=== PATIENT | female | born 1965 | race Caucasian/White ===

== ENCOUNTER 2022-07-22 12:18 | Outpatient (REF) | payer OTHER, SELFPAY ==
[2022-07-22 12:40] LABS: Basophils Absolute Auto 0.06 K/uL (0.00-0.30); Basophils Percent Auto 0.8 % (0.0-3.0); Eosinophils Absolute Auto 0.21 K/uL (0.00-0.50); Hematocrit 38.4 % (33.0-51.0); Hemoglobin* 13.8 gm/dL (12.0-16.0); Immature Granulocytes Abs Auto 0.03 K/uL (0.00-0.30); Lymphocytes Absolute Auto 1.42 K/uL (0.90-2.90); Mean Corpuscular HGB Conc 36 gm/dL (32-36); Mean Corpuscular Hemoglobin 34 pg (26-34); Mean Corpuscular Volume 95 fL (80-100); Monocytes Percent Auto 10.8 % (0.0-11.0); Neutrophils Absolute Auto 4.62 K/uL (1.7-7.0); Platelet Count* 219 K/uL (140-440); RDW Coefficient of Variation % 14.8 % (11.5-15.5); Red Blood Count 4.05 m/uL (4.00-5.20); White Blood Count* 7.11 K/uL (4.50-11.00)
[2022-07-22 12:42] LABS: Albumin* 4.2 g/dL (3.3-5.0)
[2022-07-22 12:44] LABS: Creatinine* 0.7 mg/dL (0.5-1.5); Estimated Glomerular Filt Rate 102 ml/min; Slide Review Reflex No
[2022-07-22 12:45] LABS: Alanine Aminotransferase* 22 U/L (4-35); Aspartate Amino Transferase* 26 U/L (12-35)
== END 2022-07-22 12:19 | disposition home or self-care (01) ==
LOC: NPINS 12:18
PROVIDERS: PCP Internal Medicine; Visit Provider Internal Medicine Rheumatology
DX: Z79.899 Other long term (current) drug therapy (principal); M06.4 Inflammatory polyarthropathy; M75.31 Calcific tendinitis of right shoulder; M75.81 Other shoulder lesions, right shoulder
CPT/HCPCS: 82040; 82565; 84450; 84460; 85025

== ENCOUNTER 2022-10-19 08:30 | Outpatient (RCR) | payer OTHER, SELFPAY ==
--- NOTE | 2022-07-27 15:07 | PT.OPEX ---
PT [facility] Outpatient Eval PT [facility] Outpatient Eval Start: 07/26/22 16:27 Freq: Status: Active Protocol: Document 07/26/22 16:27 SATYA (Rec: 07/26/22 16:31 SATYA [id number]) E-signed By Cori Cormier DPT Physical Therapy Outpatient Evaluation Insurance Information Insurance Name [employer] Medical Diagnosis Calcific tendinitis of R shoulder R RC tendinitis L RC tendinitis Treating Diagnosis bilateral shoulder pain, bilateral shoulder weakness, impaired posture with rounded shoulders/fwd head, limited tolerance for lifting/reaching , interrupted sleep Subjective Subjective Patient reports chronic L shoulder pain for the last 6+ months. Feels that the L shoulder pain has been getting sore, popping/catching with ROM. She had an appt scheduled with MD and then prior to the appt had onset of R shoulder pain. States she was playing pickleball one evening and had flare up of R shoulder pain. States by the next morning she was having difficulty moving R shoulder/ UE. She saw MD last week and he gave her an injection to the R shoulder. Patient reports decreased pain in R shoulder since the injection. States she is still protecting it, avoiding using it. Patient is R handed. She has been using ibuprofen and ice for pain management. Reports increased pain with lifting, reaching, use of bilateral shoulders/UEs. Pain range 1-2/10 since the injection last week. Sleep is interrupted some. Date of Last Physician Visit 07/22/22 Objective Range of Motion bilateral shoulder AROM WFL with pain/tightness reported at end ranges bilaterally Strength bilateral shoulder weakness, 4 -/5 for flex/abd/scap, 4/5 for IR/ER Assessment Assessment/Impression Patient is a 56 year old female with bilateral shoulder pain, bilateral shoulder weakness, impaired posture with rounded shoulders/fwd head, limited tolerance for lifting/reaching, interrupted sleep. Pain rated 1-2/10. Bilateral shoulder AROM is WFL with pain/tightness reported at end ranges. Patient with bilateral shoulder weakness, pain with MMT. Bilateral shoulder MMT: 4-/5 for flex/ abd/scap, 4/5 for IR/ER. She is tight, tender, reactive with palpation bilateral anterior shoulder, biceps tendon, UT/supraspinatus. Patient denies any radicular pain/sx. Speeds test positive with pain/weakness R/L shoulder. CO reach positive with pain R/L shoulder. Supraspinatus test positive with pain/weakness R/L shoulder. Patient with fwd head, rounded shoulders. She is R handed. Reports increased pain with lifting, reaching activities bilateral shoulders. Patient would benefit from skilled PT for pain/sx management, return to pain free bilateral shoulder ROM, improved bilateral shoulder strength/stability, posture/body mechanics training, and establishment of HEP. Plan of Care Rehabilitation Potential Good Physical Therapy Goals 1. Decrease R/L shoulder pain to less than/equal to 3/10 with daily/workout activities and with the progression of PT activities over the next 6-8 weeks. 2. Decrease R/L shoulder pain so that patient is able to sleep through the night on a regular basis within 4-6 weeks. 3. Improve R/L shoulder AROM over the next 6-8 weeks for return to pain free shoulder AROM and daily/workout activities without flare up of pain. 4. Patient will be educated on posture and body mechanics over the next 4-6 weeks for decreased stress to UBN/shoulder region, improved shoulder mechanics, and decreased shoulder pain. 5. Improve R/L shoulder strength/stability over the next 10-12 weeks for return to PLF with daily/workout activities without flare up of pain. 6. Patient will be I with HEP within 12 weeks for progression toward above goals, ongoing self management of pain/sx, ongoing self improvements in posture/shoulder strength/ mechanics, and for return to PLF with daily/workout activities without flare up of pain. Coordination/Communication With Referral Source Treatment Plan/Direct Interventions Manual Therapy,Therapeutic Exercises,Ultrasound Frequency/Duration 1-2x/week Patient Will Be Discharged From Therapy Completion of LTG(s),Skills Plateau,Independent w/HEP, Independently Progressing Evaluation Billing Untimed Code Treatment Minutes 23 Complexity Moderate Certification Information Physician Comment/Change Comment or Changes Physician NPI Number #
== END 2023-01-21 11:08 | disposition home or self-care (01) ==
PROVIDERS: PCP Internal Medicine; Visit Provider Orthopaedic Surgery Sports Medicine
DX: M75.31 Calcific tendinitis of right shoulder (principal); Z51.89 Encounter for other specified aftercare
CPT/HCPCS: 97110; 97140; 97162; 97535

== ENCOUNTER 2022-12-23 16:23 | Outpatient (CLI) | payer OTHER, SELFPAY ==
[2022-12-23 17:57] LABS: Cholesterol* 219 mg/dL (90-199); Triglycerides* 182 mg/dL (40-149)
[2022-12-23 17:58] LABS: HDL Cholesterol* 76 mg/dL (>=50); LDL Cholesterol Calculated 107 mg/dL (<100)
== END 2022-12-23 16:24 | disposition home or self-care (01) ==
PROVIDERS: PCP Internal Medicine; Visit Provider Internal Medicine
DX: R07.89 Other chest pain (principal); R10.32 Left lower quadrant pain
CPT/HCPCS: 80061

== ENCOUNTER 2023-01-13 08:09 | Outpatient (CLI) | payer OTHER, SELFPAY ==
--- NOTE | 2023-01-13 08:15 | CRLHL7_ITS ---
For Patients: As a result of the Century Cures Act, medical imaging exams and procedure reports are released immediately into your electronic medical record. You may view this report before your referring provider. If you have questions, please contact your health care provider. CLINICAL HISTORY: Pelvic Pain LLQ TECHNIQUE: 2D miller scale ultrasound. In addition color Doppler and spectral Doppler analysis was performed of the pelvis using a transabdominal and transvaginal approach. FINDINGS: The uterus and right ovary are surgically absent. The left ovary measures 1.9 x 1.6 x 1.5 cm. The left ovary demonstrates normal arterial and venous blood flow on color Doppler and spectral Doppler analysis. There are no suspicious fluid collections within the cul-de-sac. IMPRESSION: No ovarian mass or excess pelvic free fluid. No torsion. Dictated by Epifanio Lagos MD @ 01/13/2023 9:31:42 AM (Electronically Signed)
== END 2023-01-13 08:10 | disposition home or self-care (01) ==
LOC: US 08:10
PROVIDERS: PCP Internal Medicine; Visit Provider Internal Medicine
DX: R10.32 Left lower quadrant pain (principal); D18.09 Hemangioma of other sites
CPT/HCPCS: 76830; 76856; 93976

== ENCOUNTER 2023-01-14 08:14 | Outpatient (CLI) | payer OTHER, SELFPAY ==
--- NOTE | 2023-01-14 09:00 | CRLHL7_ITS ---
For Patients: As a result of the Century Cures Act, medical imaging exams and procedure reports are released immediately into your electronic medical record. You may view this report before your referring provider. If you have questions, please contact your health care provider. Indication: LLQ PAIN Technique: Postcontrast CT abdomen and pelvis. 91 cc Isovue 370 intravenous contrast. Please note that all CT scans at this facility use dose modulation, iterative reconstruction, and/or weight-based dosing when appropriate to reduce radiation dose to as low as reasonably achievable. Comparison: CT 11/02/2017, pelvic ultrasound 01/13/2023 Findings: Lung bases are clear. Visualized breast implants are intact. Giant cavernous hemangioma arising from the left hepatic lobe measuring 6.2 cm is similar. Sub centimeters simple cysts elsewhere within the liver. The spleen is normal. Small hiatal hernia measuring 2.4 cm. Adrenal glands normal. Normal kidneys. Pancreas normal. No bowel obstruction, free air, free fluid or adenopathy. Normal bladder and left ovary. Uterus and right ovary absent. No diverticulitis. No left ureteral stone. No abdominal wall hernia. Bilateral pars defects L5 with slight anterolisthesis of L5 on S1. Grade 1 degenerative spondylolisthesis of L4 on L5 with degenerative disc disease. These findings are chronic. Impression: Stable giant cavernous intrahepatic hemangioma. Normal appearance of the left ovary. No adnexal mass. No cause for left lower quadrant pain on today`s exam. Please note that all CT scans at this facility use dose modulation, iterative reconstruction, and/or weight-based dosing when appropriate to reduce radiation dose to as low as reasonably achievable. Dictated by Epifanio Lagos MD @ 01/14/2023 12:30:24 PM (Electronically Signed)
== END 2023-01-14 08:15 | disposition home or self-care (01) ==
LOC: CT 08:14
PROVIDERS: PCP Internal Medicine; Visit Provider Internal Medicine
DX: R10.32 Left lower quadrant pain (principal); D18.09 Hemangioma of other sites
CPT/HCPCS: 74177; Q9967

== ENCOUNTER 2023-02-11 13:07 | Outpatient (CLI) | payer OTHER, SELFPAY ==
--- NOTE | 2023-02-11 13:20 | CRLHL7_ITS ---
For Patients: As a result of the Century Cures Act, medical imaging exams and procedure reports are released immediately into your electronic medical record. You may view this report before your referring provider. If you have questions, please contact your health care provider. BILATERAL SCREENING MAMMOGRAM WITH COMPUTER-AIDED DETECTION AND TOMOSYNTHESIS TECHNIQUE: CC, MLO and Implant displaced views were obtained. These mammographic images have been obtained using full-field digital technique. These mammographic images were interpreted with the benefit of computer-aided detection. Breast Tomosynthesis was used in this interpretation. COMPARISON FILM: 02/02/22, 01/01/21, 09/07/19. FINDINGS: There are areas of scattered fibroglandular density. IMPRESSION: There is no radiographic evidence for malignancy. ASSESSMENT: BI-RADS Category 2: Benign RECOMMENDATION: Routine screening mammogram in 1 year. A lay language report of this examination will be provided to the patient. Epifanio Lagos M.D. Diagnostic Radiologist [email or web address] Transcribed: 1:31 p.maximus jane/Dictated by: Epifanio Lagos MD @ 02/14/2023 12:03:00 PM (Electronically Signed)
== END 2023-02-11 13:08 | disposition home or self-care (01) ==
LOC: MAMMO 13:08
PROVIDERS: PCP Internal Medicine; Visit Provider Obstetrics & Gynecology
DX: Z12.31 Encounter for screening mammogram for malignant neoplasm of breast (principal)
CPT/HCPCS: 77063; 77067

== ENCOUNTER 2023-02-17 08:48 | Outpatient (CLI) | payer OTHER, SELFPAY | END 2023-02-17 08:49 | disposition home or self-care (01) | PROVIDERS: PCP Internal Medicine; Visit Provider Surgery | DX: R13.10 Dysphagia, unspecified (principal); K22.89 Other specified disease of esophagus | CPT/HCPCS: 43239; 88305; J2250; J3010 ==

== ENCOUNTER 2023-03-09 08:01 | Emergency (ER) | payer OTHER, SELFPAY ==
[2023-03-09] VITALS (19 sets, daily range): BP systolic 116–139; BP diastolic 73–100; PULSE 62–78; RESP 16; TEMP 36.7; O2SAT 93–99; BMI 31.9
--- NOTE | 2023-03-09 08:26 | CRLHL7_ITS ---
For Patients: As a result of the Century Cures Act, medical imaging exams and procedure reports are released immediately into your electronic medical record. You may view this report before your referring provider. If you have questions, please contact your health care provider. Indication: Shortness of breath Technique: Volumetric multidetector CT images of the chest were obtained after the administration of IV contrast. 95 cc Isovue 370 low osmolar intravenous contrast Comparison: CT chest August 10, 2018 Findings: The thoracic inlet and thyroid gland are unremarkable. The thoracic aorta demonstrates mild ectasia measuring 3.5 centimeters in greatest dimension. There is no central filling defect to suggest pulmonary embolism. There is no mediastinal, hilar or axillary adenopathy. There is mild to moderate central bronchial thickening. There is minimal bibasilar atelectasis and/or parenchymal scar without dense consolidation, effusion or pneumothorax. There is no evidence of pulmonary mass or suspicious pulmonary nodule. There is demonstration of a hypodense nodular mass in the left liver lobe without adequate contrast for characterization seen on series 5, image 149. This was present on remote comparison exam; however, was decreased in conspicuity. The thoracic vertebral body heights are stable with minimal endplate Schmorl`s defects. There is demonstration of a small calcified disc extrusion at the T6-T7 level. Impression: No acute cardiopulmonary abnormality. No evidence of pulmonary embolus. Redemonstration of a hypodense nodular mass in the left liver lobe, not adequately contrast opacified for characterization which may represent focal nodular hyperplasia. Follow-up with right upper quadrant ultrasound for improved characterization versus cross-sectional exam such as MR or CT of the liver on an outpatient basis. Please note that all CT scans at this facility use dose modulation, iterative reconstruction, and/or weight-based dosing when appropriate to reduce radiation dose to as low as reasonably achievable. Dictated by Marc Redd MD @ 03/09/2023 9:47:28 AM (Electronically Signed)
--- NOTE | 2023-03-09 08:26 | CRLHL7_ITS ---
For Patients: As a result of the Century Cures Act, medical imaging exams and procedure reports are released immediately into your electronic medical record. You may view this report before your referring provider. If you have questions, please contact your health care provider. INDICATION: SOB TECHNIQUE: Ultrasound venous duplex bilateral lower extremity. Compression venous exam was performed using miller-scale, color Doppler, and spectral Doppler analysis. COMPARISON: None. FINDINGS: Deep veins: Sonographic imaging demonstrates the bilateral common femoral, deep femoral, superficial femoral, popliteal, posterior tibial veins to be fully compressible with normal color Doppler blood flow. Superficial veins: Greater saphenous vein is fully compressible. Left popliteal fossa hypoechoic structure measuring 7.5 x 2.8 x 7.6 cm, most compatible with Taylor cyst. No right popliteal cyst. IMPRESSION: No sign of deep venous thrombosis. Left Taylor`s cyst, measuring 7.5 x 2.8 x 7.6 cm. Dictated by Kishan Wheatley MD @ 03/09/2023 10:25:37 AM (Electronically Signed)
--- NOTE | 2023-03-09 08:28 | ED.GENADULT ---
HPI - General Adult General Time Seen by Provider: 08:28 Date Seen: 03/09/23 Chief complaint: Shortness of Breath/Dyspnea Stated complaint: Short of breath, cough--DVT concern Time Seen by Provider: 03/09/23 08:03 Source: patient Mode of arrival: ambulatory Limitations: no limitations History of Present Illness HPI narrative: PATIENT IS A PLEASANT 57 YEAR WHITE FEMALE WITH RHEUMATOID ARTHRITIS, BUNCH'S ESOPHAGUS, AND GERD WHO PRESENTS WITH about a week-long history of upper respiratory infections sinus congestion cough. More notably the patient noticed some inner thigh calf and thigh redness on the medial aspects bilaterally yesterday and today has been a bit tender to touch. The patient has had no bleeding or clotting problems. She also has had some little bit more shortness of breath with activity. She has no history of cardiac disease or lung disease, does have Bunch's esophagus, use if iliac esophagitis she is working that up, and rheumatoid arthritis. The patient is on immune suppression Michelle new med for her rheumatoid arthritis. Patient also takes estradiol. No marked leg swelling, no rigors, chills. The patient has had a negative COVID test. Presents to the ED concerned about a PE. Related Data Home Medications Medication Instructions Recorded Confirmed adalimumab 40 mg/0.4 mL 40 mg subcut Q2W 07/15/22 03/09/23 subcutaneous syringe kit (Humira(CF)) albuterol sulfate 90 mcg/actuation 2 puff inhalation Q4-6H PRN 07/15/22 03/09/23 aerosol inhaler (ProAir HFA) hydroxychloroquine 200 mg tablet 200 mg PO BID 07/15/22 03/09/23 (Plaquenil) methotrexate sodium 2.5 mg tablet 15 mg PO QWEEK 07/15/22 03/09/23 tretinoin 0.1 % topical cream 1 applic topical .QHS 07/15/22 03/09/23 (Retin-A) folic acid 1 tab PO 07/22/22 12/23/22 Previous Rx's Medication Instructions Recorded trazodone 50 mg tablet 50 - 100 mg PO .QHS #180 tabs 08/16/22 finasteride 5 mg tablet 2.5 mg PO QDAY #45 tabs 08/31/22 pantoprazole 40 mg tablet,delayed 40 mg PO QDAY #90 tabs 09/15/22 release (Protonix) estradiol 0.1 mg/24 hr semiweekly 1 patch transdermal 2XW #24 ea 11/25/22 transdermal patch estradiol 10 mcg vaginal tablet 10 mcg vaginal 2XW #24 tabs 11/25/22 (Yuvafem) doxycycline hyclate 100 mg capsule 100 mg PO BID #14 caps 03/09/23 Allergies Allergy/AdvReac Type Severity Reaction Status Date / Time Sulfa (Sulfonamide Allergy Unknown Verified 03/09/23 08:09 Antibiotics) Review of Systems Status of ROS: Reports: 6 or more systems reviewed and unremarkable except as noted in History and below PFS PFS Surgical History History of abdominoplasty ?Z98.890 - Other specified postprocedural states (ICD-10) History of basal cell carcinoma excision ?Z98.890 - Other specified postprocedural states (ICD-10) ?Z85.828 - Personal history of other malignant neoplasm of skin (ICD-10) History of section ?Z98.891 - History of uterine scar from previous surgery (ICD-10) History of hysterectomy ?Z90.710 - Acquired absence of both cervix and uterus (ICD-10) History of right oophorectomy ?Z90.721 - Acquired absence of ovaries, unilateral (ICD-10) History of tonsillectomy ?Z90.89 - Acquired absence of other organs (ICD-10) Hx of appendectomy ?Z90.49 - Acquired absence of other specified parts of digestive tract (ICD-10) Hx of breast augmentation ?Z98.82 - Breast implant status (ICD-10) Family History Unknown Cancer Diabetes Heart problem Mother No problems noted. Social History Smoking Status: Never smoker Do you use any of these nicotine containing products: None Second hand tobacco smoke exposure: No How often do you have a drink containing alcohol: never AUDIT-C Alcohol total score: 0 Non-prescribed substance use: denies use Little interest or pleasure in doing things: not at all Feeling down, depressed, or hopeless: not at all service: No Exam Narrative: Exam Narrative: Objective: The patient is alert or x3 Vital signs unremarkable HEENT is unremarkable no facial asymmetry no scleral icterus Mouth clear Neck is supple Chest is clear no rales or wheezing Heart rate and rhythm regular without S3, S4, no significant murmur noted. Abdomen benign soft Extremities show no edema, neurologic nonfocal, there is some mild warmth on the inner aspect of her distal thighs bilaterally and medial calves. There is no palpable venous cords. Good peripheral perfusion noted Const: Vital Signs, click to edit/add: Vital Signs - 24 hr 03/09/23 08:11 03/09/23 09:03 03/09/23 09:20 Temperature 98.0 F Pulse Rate 70 Pulse Rate [Pulse Oximeter] 78 Respiratory Rate 16 Blood Pressure Blood Pressure [Ri ght Upper Arm] 124/74 Pulse Oximetry 97 99 98 Oxygen Delivery Me thod Room Air 03/09/23 09:21 03/09/23 09:22 03/09/23 09:42 Temperature Pulse Rate 67 65 Pulse Rate [Pulse Oximeter] Respiratory Rate 16 Blood Pressure 139/100 H 120/85 Blood Pressure [Ri ght Upper Arm] Pulse Oximetry 98 98 Oxygen Delivery Me thod 03/09/23 10:01 03/09/23 10:04 03/09/23 10:15 Temperature Pulse Rate 66 65 Pulse Rate [Pulse Oximeter] Respiratory Rate Blood Pressure 117/73 Blood Pressure [Ri ght Upper Arm] Pulse Oximetry 94 94 Oxygen Delivery Me thod 03/09/23 10:21 03/09/23 10:30 03/09/23 10:41 Temperature Pulse Rate 69 62 64 Pulse Rate [Pulse Oximeter] Respiratory Rate Blood Pressure 131/83 116/80 Blood Pressure [Ri ght Upper Arm] Pulse Oximetry 97 95 93 Oxygen Delivery Me thod 03/09/23 10:41 03/09/23 10:41 03/09/23 10:41 Temperature Pulse Rate 64 64 64 Pulse Rate [Pulse Oximeter] Respiratory Rate Blood Pressure 116/80 116/80 116/80 Blood Pressure [Ri ght Upper Arm] Pulse Oximetry 93 93 93 Oxygen Delivery Me thod 03/09/23 10:53 03/09/23 11:00 03/09/23 11:01 Temperature Pulse Rate 63 62 63 Pulse Rate [Pulse Oximeter] Respiratory Rate Blood Pressure 121/82 Blood Pressure [Ri ght Upper Arm] Pulse Oximetry 97 96 98 Oxygen Delivery Me thod 03/09/23 11:01 03/09/23 11:02 03/09/23 11:15 Temperature Pulse Rate 63 64 64 Pulse Rate [Pulse Oximeter] Respiratory Rate Blood Pressure 121/82 Blood Pressure [Ri ght Upper Arm] Pulse Oximetry 98 97 95 Oxygen Delivery Me thod 03/09/23 11:21 03/09/23 11:30 Temperature Pulse Rate 65 65 Pulse Rate [Pulse Oximeter] Respiratory Rate Blood Pressure 118/96 H Blood Pressure [Ri ght Upper Arm] Pulse Oximetry 98 98 Oxygen Delivery Me thod Course Vital Signs Vital signs: Initial Vital Signs Temperature 98.0 F 03/09/23 08:11 Temperature Source Temporal Artery Scan 03/09/23 08:11 Pulse Rate 78 03/09/23 08:11 Pulse Rhythm Regular 03/09/23 08:11 Pulse Strength 3+ Normal 03/09/23 08:11 Respiratory Rate 16 03/09/23 08:11 Blood Pressure 124/74 03/09/23 08:11 Blood Pressure Mean 90 03/09/23 08:11 Blood Pressure Position Sitting 03/09/23 08:11 Pulse Oximetry 97 03/09/23 08:11 Oxygen Delivery Method Room Air 03/09/23 08:11 Vital Signs Temperature 98.0 F 03/09/23 08:11 Pulse Rate 78 03/09/23 08:11 Respiratory Rate 16 03/09/23 08:11 Blood Pressure 124/74 03/09/23 08:11 Pulse Oximetry 97 03/09/23 08:11 Oxygen Delivery Method Room Air 03/09/23 08:11 Temperature 98.0 F 03/09/23 08:11 Pulse Rate 65 03/09/23 11:30 Respiratory Rate 16 03/09/23 09:21 Blood Pressure 118/96 H 03/09/23 11:21 Pulse Oximetry 98 03/09/23 11:30 Oxygen Delivery Method Room Air 03/09/23 08:11 Medical Decision Making MDM Narrative Medical decision making narrative: Patient is a 57-year-old white female with history of rheumatoid arthritis, Bunch's esophagus, on estrogen replacement. The patient reports some tenderness and mild warmth in the inner aspect of her calves and distal thighs times 24 hours. Also has some mild shortness of breath, but she has had an upper respiratory infection for the last 10 days as well. At this point the differential be broad including coronary disease, pulmonary embolus, thrombophlebitis. At this point I think could be appropriate to give her aspirin, IV fluid, check a CT scan of her chest with contrast to rule out PE rupture or other intrapulmonary process such as pneumonia, would also do a cardiac workup including EKG, cardiac monitoring, oximetry, troponin. Will check a CRP electrolytes and other labs, CBC. Depending on results of the CT scan and Doppler, may continue aspirin, start an antibiotic such as Ancef and then Keflex for home. I think for completeness getting blood cultures would be appropriate as well as COVID/RSV/influenza. Addendum: Patient's white count hemoglobin are normal, her CBC look her ER profile looks unremarkable troponin is negative, EKG shows no acute ST T wave changes limited R-wave progression anteriorly COVID/RSV/influenza is negative. Chest CT shows no pulmonary embolus, there is a abnormality in the a left liver that she knows about. Given her reasonable EKG and lab studies. 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 she is comfortable plan Lab Data Labs: Lab Results 03/09/23 Range/Units 08:53 WBC 6.12 (4.50-11.00) K/uL RBC 4.22 (4.00-5.20) m/uL Hgb 12.9 (12.0-16.0) gm/dL Hct 38.1 (33.0-51.0) % MCV 90 (80-100) fL MCH 31 (26-34) pg MCHC 34 (32-36) gm/dL RDW Coeff of Radha 13.6 (11.5-15.5) % Plt Count 198 (140-440) K/uL Neut % (Auto) 55.1 (42.0-72.0) % Lymph % (Auto) 19.6 L (20-44) % Florence % (Auto) 10.1 (0.0-11.0) % Eos % (Auto) 13.6 H (0.0-7.0) % Baso % (Auto) 0.8 (0.0-3.0) % Neut # (Auto) 3.37 (1.7-7.0) K/uL Lymph # (Auto) 1.20 (0.90-2.90) K/uL Florence # (Auto) 0.60 (0.00-0.90) K/UL Eos # (Auto) 0.80 H (0.00-0.50) K/uL Baso # (Auto) 0.05 (0.00-0.30) K/uL D-Dimer Quant (PE/DVT) 1.16 H (0.00-0.50) ug/ml Sodium 139 (135-149) mmol/L Potassium 4.0 (3.6-5.1) mmol/L Chloride 107 (96-114) mmol/L Carbon Dioxide 26 (20-32) mmol/L BUN 12 (7-30) mg/dL Creatinine 0.7 (0.5-1.5) mg/dL Estimated Creat Clear 74.23 Estimated GFR 101 ml/min Glucose 98 (60-115) mg/dL Calcium 8.6 (8.4-10.6) mg/dL Total Bilirubin 0.7 (0.1-1.5) mg/dL Direct Bilirubin 0.1 (0.0-0.5) mg/dL AST 31 (12-35) U/L ALT 29 (4-35) U/L Alkaline Phosphatase 52 (40-150) U/L Troponin I < 0.01 L (0.01-0.04) ng/mL C-Reactive Protein 0.7 (0.5-1.0) mg/dL NT-Pro-B Natriuret Pep 84 pg/mL Total Protein 6.7 (6.0-8.3) g/dL Albumin 3.9 (3.3-5.0) g/dL SARS-CoV-2 (PCR) Negative SARS-CoV-2 (Negative) Influenza Type A (PCR) Negative PCR FLU A (Negative) Influenza Type B (PCR) Negative PCR FLU B (Negative) RSV (PCR) Negative PCR RSV (Negative) Discharge Plan Discharge Clinical Impression: Acute cough, Acute upper respiratory infection, Shortness of breath, Bilateral cellulitis of lower leg Patient Disposition: Home, Self-Care Condition: Stable Additional Instructions: Light activity, elevate legs, warm baths couple times a day, Zithromax daily for 7 days, may use aspirin as well for the next few days. Follow up with primary care not improving, return to ED sooner change concerns worsening. Activity Level: Light activity Discharge Diet: Regular Prescriptions: New doxycycline hyclate 100 mg capsule 100 mg PO BID Qty: 14 0RF No Action folic acid 1 tab PO tretinoin [Retin-A] 0.1 % cream 1 applic topical .QHS Humira(CF) 40 mg/0.4 mL syringe kit 40 mg subcut Q2W hydroxychloroquine [Plaquenil] 200 mg tablet 200 mg PO BID albuterol sulfate [ProAir HFA] 90 mcg/actuation HFA aerosol inhaler 2 puff inhalation Q4-6H PRN methotrexate sodium 2.5 mg tablet 15 mg PO QWEEK trazodone 50 mg tablet 50 - 100 mg PO .QHS Qty: 180 3RF finasteride 5 mg tablet 2.5 mg PO QDAY Qty: 45 2RF pantoprazole [Protonix] 40 mg tablet,delayed release (DR/EC) 40 mg PO QDAY Qty: 90 3RF estradiol 0.1 mg/24 hr patch semiweekly 1 patch transdermal 2XW Qty: 24 0RF Rx Instructions: apply 1 patch for 3 days alternating with 1 patch for 4 days each week for 3 wks per 4-wk cycle estradiol [Yuvafem] 10 mcg tablet 10 mcg vaginal 2XW Qty: 24 0RF Follow Up/Referrals: Fallon Camarena MD [Primary Care Provider] - Stand Alone [facility]: [facility] Info Instructions
[2023-03-09] MEDS: ASPIRIN 81 MG TAB.CHEW 324 MG PO (08:46)
[2023-03-09] MEDS: 0.9 % SODIUM CHLORIDE 500 ML 500 ML IV (08:47)
[2023-03-09 09:13] LABS: Basophils Absolute Auto 0.05 K/uL (0.00-0.30); Basophils Percent Auto 0.8 % (0.0-3.0); Eosinophils Percent Auto 13.6 % (0.0-7.0); Hematocrit 38.1 % (33.0-51.0); Hemoglobin* 12.9 gm/dL (12.0-16.0); Immature Granulocytes Abs Auto 0.05 K/uL (0.00-0.30); Immature Granulocytes Pct Auto 0.8 %; Lymphocytes Percent Auto 19.6 % (20-44); Mean Corpuscular HGB Conc 34 gm/dL (32-36); Mean Corpuscular Hemoglobin 31 pg (26-34); Mean Corpuscular Volume 90 fL (80-100); Monocytes Percent Auto 10.1 % (0.0-11.0); Neutrophils Absolute Auto 3.37 K/uL (1.7-7.0); Neutrophils Percent Auto 55.1 % (42.0-72.0); Platelet Count* 198 K/uL (140-440); RDW Coefficient of Variation % 13.6 % (11.5-15.5); Red Blood Count 4.22 m/uL (4.00-5.20); White Blood Count* 6.12 K/uL (4.50-11.00)
[2023-03-09 09:15] LABS: Albumin* 3.9 g/dL (3.3-5.0); Chloride* 107 mmol/L (96-114)
[2023-03-09 09:16] LABS: Sodium* 139 mmol/L (135-149)
[2023-03-09 09:17] LABS: Slide Review Reflex No
[2023-03-09 09:18] LABS: Creatinine* 0.7 mg/dL (0.5-1.5); Est. Creatinine Clearance* 74.23; Estimated Glomerular Filt Rate 101 ml/min
[2023-03-09 09:19] LABS: Alanine Aminotransferase* 29 U/L (4-35); Alkaline Phosphatase* 52 U/L (40-150); Aspartate Amino Transferase* 31 U/L (12-35); Bilirubin Direct* 0.1 mg/dL (0.0-0.5); Bilirubin Total* 0.7 mg/dL (0.1-1.5); Blood Urea Nitrogen* 12 mg/dL (7-30); Calcium* 8.6 mg/dL (8.4-10.6); Carbon Dioxide* 26 mmol/L (20-32); Glucose* 98 mg/dL (60-115); Total Protein* 6.7 g/dL (6.0-8.3)
[2023-03-09 09:20] LABS: D Dimer Quantitative* 1.16 ug/ml (0.00-0.50)
[2023-03-09 09:22] LABS: C Reactive Protein* 0.7 mg/dL (0.5-1.0)
[2023-03-09 09:29] LABS: NT Pro B Type NatriureticPept* 84 pg/mL
[2023-03-09 09:31] LABS: Troponin I* < 0.01 ng/mL (0.01-0.04)
[2023-03-09 09:45] LABS: PCR FLU A Negative PCR FLU A (Negative); PCR FLU B Negative PCR FLU B (Negative); PCR RSV Negative PCR RSV (Negative)
[2023-03-09 09:53] LABS: SARS PCR* Negative SARS-CoV-2 (Negative)
== END 2023-03-09 11:46 | disposition home or self-care (01) ==
PROVIDERS: Emergency Provider Family Medicine; PCP Internal Medicine
DX: L03.116 Cellulitis of left lower limb (principal); L03.115 Cellulitis of right lower limb; R06.02 Shortness of breath; R05.1 Acute cough; J06.9 Acute upper respiratory infection, unspecified
CPT/HCPCS: 36415; 71260; 80048; 80076; 83880; 84484; 85025; 85379; 86140; 87040; 87631; 93005; 93970; 94761; 96360; 96361; 99284; 99285; A9270; J7120; Q9967

== ENCOUNTER 2023-04-27 18:27 | Outpatient (CLI) | payer OTHER, SELFPAY | END 2023-04-27 18:28 | disposition home or self-care (01) | LOC: AMB 05-02 14:46 | PROVIDERS: PCP Family Medicine; Visit Provider Emergency Medicine Emergency Medical Services | DX: R10.9 Unspecified abdominal pain (principal); K76.9 Liver disease, unspecified | CPT/HCPCS: A0425; A0426; A0428 ==

== ENCOUNTER 2023-06-27 09:09 | Outpatient (CLI) | payer OTHER, SELFPAY ==
--- NOTE | 2023-06-27 09:15 | CRLHL7_ITS ---
For Patients: As a result of the Century Cures Act, medical imaging exams and procedure reports are released immediately into your electronic medical record. You may view this report before your referring provider. If you have questions, please contact your health care provider. INDICATION: THYROID NODULE NOTED ON PET SCAN COMPARISON: Not available TECHNIQUE: Dutta scale and color Doppler images were acquired of the thyroid gland. FINDINGS: There is a heterogeneously hypoechoic nodule within the upper pole of the right thyroid lobe measuring 1.2 x 0.7 x 0.9 cm. The right lobe measures 4.4 x 1.1 x 1.3 cm and the left lobe measures 4.3 x 1.0 x 1.1 cm in size. The isthmus measures 2 millimeters. The color Doppler images demonstrate normal vascularity. There is no evidence of cervical lymphadenopathy or parathyroid mass. IMPRESSION: 1.2 cm TR 4 nodule upper pole right thyroid lobe. Follow-up at 1, 2, 3 and 5 years recommended. Dictated by Epifanio Lagos MD @ 06/27/2023 10:09:49 AM (Electronically Signed)
== END 2023-06-27 09:10 | disposition home or self-care (01) ==
LOC: US 09:10
PROVIDERS: PCP Family Medicine; Visit Provider Internal Medicine
DX: E04.1 Nontoxic single thyroid nodule (principal)
CPT/HCPCS: 76536

== ENCOUNTER 2023-07-18 14:15 | Outpatient (RCR) | payer OTHER, SELFPAY ==
[2023-05-12 13:30] VITALS: BP 94/67; PULSE 88; RESP 16; TEMP 36.1; O2SAT 99
[2023-05-12 13:57] LABS: Basophils Absolute Auto 0.05 K/uL (0.00-0.30); Basophils Percent Auto 0.6 % (0.0-3.0); Eosinophils Absolute Auto 0.18 K/uL (0.00-0.50); Eosinophils Percent Auto 2.1 % (0.0-7.0); Hematocrit 37.4 % (33.0-51.0); Immature Granulocytes Abs Auto 0.02 K/uL (0.00-0.30); Immature Granulocytes Pct Auto 0.2 %; Lymphocytes Percent Auto 51.1 % (20-44); Mean Corpuscular HGB Conc 35 gm/dL (32-36); Mean Corpuscular Hemoglobin 30 pg (26-34); Mean Corpuscular Volume 86 fL (80-100); Monocytes Percent Auto 8.4 % (0.0-11.0); Neutrophils Percent Auto 37.6 % (42.0-72.0); Platelet Count* 290 K/uL (140-440); RDW Coefficient of Variation % 14.2 % (11.5-15.5); Red Blood Count 4.35 m/uL (4.00-5.20); White Blood Count* 8.55 K/uL (4.50-11.00)
[2023-05-12 14:02] LABS: Slide Review Reflex No
[2023-05-12 14:23] LABS: C Reactive Protein* < 0.5 mg/dL (0.5-1.0)
--- NOTE | 2023-05-12 16:06 | ONC.NURNOTE ---
Margarita aware of better lab results. she wondered why LFT were not done. faxed labs to her primary with a note asking if they want LFT. Lab has blood
[2023-05-13 09:41] LABS: Albumin* 3.7 g/dL (3.3-5.0)
[2023-05-13 09:44] LABS: Alanine Aminotransferase* 43 U/L (4-35); Alkaline Phosphatase* 56 U/L (40-150); Aspartate Amino Transferase* 44 U/L (12-35); Bilirubin Direct* 0.1 mg/dL (0.0-0.5); Bilirubin Total* 0.7 mg/dL (0.1-1.5); Creatinine* 0.6 mg/dL (0.5-1.5); Estimated Glomerular Filt Rate 105 ml/min
[2023-05-19 13:38] VITALS: BP 106/74; PULSE 82; RESP 16; TEMP 36.7; O2SAT 100
[2023-05-19 14:12] LABS: Basophils Absolute Auto 0.04 K/uL (0.00-0.30); Basophils Percent Auto 0.6 % (0.0-3.0); Eosinophils Absolute Auto 0.26 K/uL (0.00-0.50); Eosinophils Percent Auto 3.8 % (0.0-7.0); Hematocrit 36.6 % (33.0-51.0); Hemoglobin* 12.7 gm/dL (12.0-16.0); Immature Granulocytes Abs Auto 0.05 K/uL (0.00-0.30); Immature Granulocytes Pct Auto 0.7 %; Lymphocytes Percent Auto 44.2 % (20-44); Mean Corpuscular HGB Conc 35 gm/dL (32-36); Mean Corpuscular Hemoglobin 30 pg (26-34); Mean Corpuscular Volume 86 fL (80-100); Monocytes Percent Auto 10.7 % (0.0-11.0); Platelet Count* 230 K/uL (140-440); RDW Coefficient of Variation % 14.1 % (11.5-15.5); Red Blood Count 4.26 m/uL (4.00-5.20); White Blood Count* 6.93 K/uL (4.50-11.00)
[2023-05-19 14:14] LABS: Slide Review Reflex No
[2023-05-19 14:43] LABS: Albumin* 3.9 g/dL (3.3-5.0)
[2023-05-19 14:46] LABS: Alanine Aminotransferase* 32 U/L (4-35); Alkaline Phosphatase* 49 U/L (40-150); Aspartate Amino Transferase* 38 U/L (12-35); Bilirubin Direct* 0.1 mg/dL (0.0-0.5); Bilirubin Total* 0.9 mg/dL (0.1-1.5); Total Protein* 6.9 g/dL (6.0-8.3)
[2023-05-19 14:54] LABS: C Reactive Protein* < 0.5 mg/dL (0.5-1.0)
[2023-05-26 14:22] LABS: Albumin* 3.8 g/dL (3.3-5.0)
[2023-05-26 14:25] LABS: Alanine Aminotransferase* 27 U/L (4-35); Alkaline Phosphatase* 49 U/L (40-150); Aspartate Amino Transferase* 37 U/L (12-35); Bilirubin Direct* 0.1 mg/dL (0.0-0.5); Bilirubin Total* 0.8 mg/dL (0.1-1.5); Total Protein* 6.8 g/dL (6.0-8.3)
[2023-05-26 14:29] LABS: C Reactive Protein* 1.5 mg/dL (0.5-1.0)
[2023-05-26 14:45] LABS: Hematocrit 36.7 % (33.0-51.0); Hemoglobin* 12.9 gm/dL (12.0-16.0); Mean Corpuscular Hemoglobin 31 pg (26-34); Mean Corpuscular Volume 89 fL (80-100); Red Blood Count 4.13 m/uL (4.00-5.20); White Blood Count* 7.35 K/uL (4.50-11.00)
[2023-05-26 14:46] LABS: Mean Corpuscular HGB Conc 35 gm/dL (32-36); Platelet Count* 242 K/uL (140-440); RDW Coefficient of Variation % 14.5 % (11.5-15.5)
[2023-05-26 14:47] LABS: Basophils Percent Auto 0.7 % (0.0-3.0); Eosinophils Percent Auto 3.8 % (0.0-7.0); Immature Granulocytes Pct Auto 0.7 %; Lymphocytes Percent Auto 33.5 % (20-44); Monocytes Percent Auto 9.7 % (0.0-11.0); Neutrophils Percent Auto 51.6 % (42.0-72.0); Slide Review Reflex No
[2023-06-02 14:56] LABS: Basophils Absolute Auto 0.04 K/uL (0.00-0.30); Basophils Percent Auto 0.6 % (0.0-3.0); Eosinophils Absolute Auto 0.24 K/uL (0.00-0.50); Eosinophils Percent Auto 3.8 % (0.0-7.0); Hematocrit 36.4 % (33.0-51.0); Hemoglobin* 12.2 gm/dL (12.0-16.0); Immature Granulocytes Abs Auto 0.06 K/uL (0.00-0.30); Lymphocytes Absolute Auto 1.95 K/uL (0.90-2.90); Lymphocytes Percent Auto 31.1 % (20-44); Mean Corpuscular HGB Conc 34 gm/dL (32-36); Mean Corpuscular Hemoglobin 29 pg (26-34); Mean Corpuscular Volume 87 fL (80-100); Monocytes Percent Auto 10.5 % (0.0-11.0); Neutrophils Absolute Auto 3.33 K/uL (1.7-7.0); Platelet Count* 217 K/uL (140-440); RDW Coefficient of Variation % 14.4 % (11.5-15.5); Red Blood Count 4.17 m/uL (4.00-5.20); White Blood Count* 6.28 K/uL (4.50-11.00)
[2023-06-02 15:08] LABS: Albumin* 3.7 g/dL (3.3-5.0); Slide Review Reflex No
[2023-06-02 15:11] LABS: Creatinine* 0.5 mg/dL (0.5-1.5); Estimated Glomerular Filt Rate 110 ml/min
[2023-06-02 15:12] LABS: Alanine Aminotransferase* 23 U/L (4-35); Alkaline Phosphatase* 41 U/L (40-150); Aspartate Amino Transferase* 30 U/L (12-35); Bilirubin Total* 0.8 mg/dL (0.1-1.5); Total Protein* 6.5 g/dL (6.0-8.3)
[2023-06-02 15:14] LABS: C Reactive Protein* 0.6 mg/dL (0.5-1.0)
[2023-06-07] MEDS: ERTAPENEM 1 GM in 0.9 % SODIUM CHLORIDE Mini-bag 100 ML IVPB (14:50)
[2023-06-09 14:32] LABS: Basophils Percent Auto 1.2 % (0.0-3.0); Hematocrit 48.9 % (33.0-51.0); Hemoglobin* 16.5 gm/dL (12.0-16.0); Lymphocytes Percent Auto 37.1 % (20-44); Mean Corpuscular HGB Conc 34 gm/dL (32-36); Mean Corpuscular Hemoglobin 29 pg (26-34); Mean Corpuscular Volume 86 fL (80-100); Monocytes Percent Auto 8.8 % (0.0-11.0); Neutrophils Percent Auto 47.9 % (42.0-72.0); Platelet Count* 138 K/uL (140-440); RDW Coefficient of Variation % 14.4 % (11.5-15.5); Red Blood Count 5.71 m/uL (4.00-5.20); White Blood Count* 3.42 K/uL (4.50-11.00)
[2023-06-09 14:37] LABS: Slide Review Reflex No
[2023-06-09 14:48] LABS: Chloride* 102 mmol/L (96-114)
[2023-06-09 14:49] LABS: Albumin* 3.7 g/dL (3.3-5.0); Potassium* 3.6 mmol/L (3.6-5.1); Sodium* 135 mmol/L (135-149)
[2023-06-09 14:51] LABS: Bilirubin Total* 0.8 mg/dL (0.1-1.5); Creatinine* 0.5 mg/dL (0.5-1.5); Estimated Glomerular Filt Rate 110 ml/min
[2023-06-09 14:52] LABS: Alanine Aminotransferase* 22 U/L (4-35); Alkaline Phosphatase* 38 U/L (40-150); Aspartate Amino Transferase* 32 U/L (12-35); Blood Urea Nitrogen* 6 mg/dL (7-30); Calcium* 8.8 mg/dL (8.4-10.6); Carbon Dioxide* 25 mmol/L (20-32); Glucose* 86 mg/dL (60-115); Total Protein* 6.5 g/dL (6.0-8.3)
[2023-06-15 11:53] LABS: Basophils Absolute Auto 0.06 K/uL (0.00-0.30); Basophils Percent Auto 1.2 % (0.0-3.0); Eosinophils Absolute Auto 0.22 K/uL (0.00-0.50); Eosinophils Percent Auto 4.5 % (0.0-7.0); Hematocrit 41.6 % (33.0-51.0); Hemoglobin* 14.1 gm/dL (12.0-16.0); Lymphocytes Absolute Auto 2.15 K/uL (0.90-2.90); Lymphocytes Percent Auto 43.9 % (20-44); Mean Corpuscular HGB Conc 34 gm/dL (32-36); Mean Corpuscular Hemoglobin 29 pg (26-34); Mean Corpuscular Volume 87 fL (80-100); Monocytes Percent Auto 10.8 % (0.0-11.0); Neutrophils Percent Auto 39.6 % (42.0-72.0); Platelet Count* 204 K/uL (140-440); RDW Coefficient of Variation % 14.4 % (11.5-15.5); Red Blood Count 4.81 m/uL (4.00-5.20)
[2023-06-15 12:38] LABS: Chloride* 103 mmol/L (96-114); Sodium* 137 mmol/L (135-149)
[2023-06-15 12:39] LABS: Potassium* 3.9 mmol/L (3.6-5.1)
[2023-06-15 12:41] LABS: Alanine Aminotransferase* 24 U/L (4-35); Alkaline Phosphatase* 40 U/L (40-150); Aspartate Amino Transferase* 31 U/L (12-35); Bilirubin Total* 0.8 mg/dL (0.1-1.5); Blood Urea Nitrogen* 6 mg/dL (7-30); Carbon Dioxide* 25 mmol/L (20-32); Creatinine* 0.5 mg/dL (0.5-1.5); Estimated Glomerular Filt Rate 110 ml/min; Glucose* 99 mg/dL (60-115); Total Protein* 7.1 g/dL (6.0-8.3)
[2023-06-16 02:28] LABS: Slide Review Reflex No
[2023-06-22 11:32] LABS: Basophils Absolute Auto 0.06 K/uL (0.00-0.30); Basophils Percent Auto 1.2 % (0.0-3.0); Eosinophils Absolute Auto 0.22 K/uL (0.00-0.50); Eosinophils Percent Auto 4.5 % (0.0-7.0); Hematocrit 37.3 % (33.0-51.0); Hemoglobin* 12.7 gm/dL (12.0-16.0); Immature Granulocytes Abs Auto 0.02 K/uL (0.00-0.30); Immature Granulocytes Pct Auto 0.4 %; Lymphocytes Absolute Auto 2.09 K/uL (0.90-2.90); Lymphocytes Percent Auto 42.3 % (20-44); Mean Corpuscular HGB Conc 34 gm/dL (32-36); Mean Corpuscular Hemoglobin 30 pg (26-34); Mean Corpuscular Volume 88 fL (80-100); Monocytes Percent Auto 10.5 % (0.0-11.0); Neutrophils Percent Auto 41.1 % (42.0-72.0); Platelet Count* 210 K/uL (140-440); RDW Coefficient of Variation % 14.2 % (11.5-15.5); Red Blood Count 4.25 m/uL (4.00-5.20); White Blood Count* 4.94 K/uL (4.50-11.00)
[2023-06-22 11:34] LABS: Slide Review Reflex No
[2023-06-22 11:39] LABS: Chloride* 106 mmol/L (96-114)
[2023-06-22 11:40] LABS: Sodium* 137 mmol/L (135-149)
[2023-06-22 11:42] LABS: Aspartate Amino Transferase* 33 U/L (12-35); Bilirubin Total* 0.7 mg/dL (0.1-1.5); Carbon Dioxide* 23 mmol/L (20-32); Creatinine* 0.5 mg/dL (0.5-1.5); Estimated Glomerular Filt Rate 110 ml/min
[2023-06-22 11:43] LABS: Alanine Aminotransferase* 33 U/L (4-35); Alkaline Phosphatase* 36 U/L (40-150); Blood Urea Nitrogen* 5 mg/dL (7-30); Calcium* 9.1 mg/dL (8.4-10.6); Glucose* 105 mg/dL (60-115)
[2023-06-22 11:44] VITALS: TEMP 36.1
[2023-06-29 11:43] LABS: Basophils Absolute Auto 0.06 K/uL (0.00-0.30); Basophils Percent Auto 1.2 % (0.0-3.0); Eosinophils Absolute Auto 0.29 K/uL (0.00-0.50); Eosinophils Percent Auto 5.8 % (0.0-7.0); Hematocrit 37.8 % (33.0-51.0); Hemoglobin* 12.7 gm/dL (12.0-16.0); Immature Granulocytes Abs Auto 0.01 K/uL (0.00-0.30); Immature Granulocytes Pct Auto 0.2 %; Lymphocytes Absolute Auto 2.05 K/uL (0.90-2.90); Lymphocytes Percent Auto 41.1 % (20-44); Mean Corpuscular HGB Conc 34 gm/dL (32-36); Mean Corpuscular Hemoglobin 29 pg (26-34); Mean Corpuscular Volume 87 fL (80-100); Neutrophils Percent Auto 41.7 % (42.0-72.0); Platelet Count* 212 K/uL (140-440); RDW Coefficient of Variation % 13.9 % (11.5-15.5); Red Blood Count 4.34 m/uL (4.00-5.20); White Blood Count* 4.99 K/uL (4.50-11.00)
[2023-06-29 11:54] LABS: Albumin* 3.9 g/dL (3.3-5.0); Chloride* 106 mmol/L (96-114)
[2023-06-29 11:55] LABS: Potassium* 3.7 mmol/L (3.6-5.1); Sodium* 138 mmol/L (135-149)
[2023-06-29 11:57] LABS: Aspartate Amino Transferase* 35 U/L (12-35); Bilirubin Total* 0.8 mg/dL (0.1-1.5); Carbon Dioxide* 26 mmol/L (20-32); Creatinine* 0.5 mg/dL (0.5-1.5); Estimated Glomerular Filt Rate 110 ml/min; Total Protein* 6.9 g/dL (6.0-8.3)
[2023-06-29 11:58] LABS: Alanine Aminotransferase* 40 U/L (4-35); Alkaline Phosphatase* 43 U/L (40-150); Blood Urea Nitrogen* 6 mg/dL (7-30); Calcium* 9.1 mg/dL (8.4-10.6); Glucose* 86 mg/dL (60-115); Slide Review Reflex No
[2023-06-29 16:24] VITALS: RESP 14; TEMP 36.1
[2023-07-06 11:13] LABS: Basophils Absolute Auto 0.07 K/uL (0.00-0.30); Basophils Percent Auto 1.3 % (0.0-3.0); Eosinophils Percent Auto 7.5 % (0.0-7.0); Hematocrit 37.3 % (33.0-51.0); Hemoglobin* 12.5 gm/dL (12.0-16.0); Lymphocytes Percent Auto 38.6 % (20-44); Mean Corpuscular HGB Conc 34 gm/dL (32-36); Mean Corpuscular Hemoglobin 29 pg (26-34); Mean Corpuscular Volume 87 fL (80-100); Monocytes Percent Auto 8.5 % (0.0-11.0); Neutrophils Percent Auto 44.1 % (42.0-72.0); Platelet Count* 197 K/uL (140-440); RDW Coefficient of Variation % 13.8 % (11.5-15.5); Red Blood Count 4.29 m/uL (4.00-5.20); White Blood Count* 5.44 K/uL (4.50-11.00)
[2023-07-06 11:21] LABS: Slide Review Reflex No
[2023-07-06 11:29] LABS: Albumin* 3.8 g/dL (3.3-5.0); Chloride* 106 mmol/L (96-114); Sodium* 137 mmol/L (135-149)
[2023-07-06 11:30] LABS: Potassium* 3.5 mmol/L (3.6-5.1)
[2023-07-06 11:32] LABS: Alanine Aminotransferase* 57 U/L (4-35); Alkaline Phosphatase* 44 U/L (40-150); Aspartate Amino Transferase* 47 U/L (12-35); Bilirubin Total* 0.6 mg/dL (0.1-1.5); Blood Urea Nitrogen* 5 mg/dL (7-30); Calcium* 8.7 mg/dL (8.4-10.6); Carbon Dioxide* 24 mmol/L (20-32); Creatinine* 0.5 mg/dL (0.5-1.5); Estimated Glomerular Filt Rate 110 ml/min; Glucose* 90 mg/dL (60-115); Total Protein* 6.8 g/dL (6.0-8.3)
[2023-07-06 12:56] VITALS: RESP 14; TEMP 36.1
[2023-07-13 15:47] LABS: Albumin* 3.6 g/dL (3.3-5.0); Chloride* 107 mmol/L (96-114); Potassium* 3.6 mmol/L (3.6-5.1); Sodium* 138 mmol/L (135-149)
[2023-07-13 15:49] LABS: Creatinine* 0.5 mg/dL (0.5-1.5); Estimated Glomerular Filt Rate 110 ml/min
[2023-07-13 15:50] LABS: Alanine Aminotransferase* 63 U/L (4-35); Alkaline Phosphatase* 53 U/L (40-150); Aspartate Amino Transferase* 50 U/L (12-35); Bilirubin Total* 0.4 mg/dL (0.1-1.5); Blood Urea Nitrogen* 10 mg/dL (7-30); Carbon Dioxide* 23 mmol/L (20-32); Glucose* 141 mg/dL (60-115); Total Protein* 6.4 g/dL (6.0-8.3)
[2023-07-13 15:51] LABS: Calcium* 8.4 mg/dL (8.4-10.6)
[2023-07-13 15:56] LABS: Basophils Absolute Auto 0.07 K/uL (0.00-0.30); Basophils Percent Auto 1.2 % (0.0-3.0); Eosinophils Percent Auto 10.8 % (0.0-7.0); Hematocrit 35.6 % (33.0-51.0); Hemoglobin* 11.9 gm/dL (12.0-16.0); Immature Granulocytes Abs Auto 0.04 K/uL (0.00-0.30); Immature Granulocytes Pct Auto 0.7 %; Lymphocytes Absolute Auto 2.28 K/uL (0.90-2.90); Lymphocytes Percent Auto 39.8 % (20-44); Mean Corpuscular HGB Conc 33 gm/dL (32-36); Mean Corpuscular Hemoglobin 29 pg (26-34); Mean Corpuscular Volume 87 fL (80-100); Monocytes Percent Auto 7.2 % (0.0-11.0); Neutrophils Percent Auto 40.3 % (42.0-72.0); Platelet Count* 199 K/uL (140-440); RDW Coefficient of Variation % 13.8 % (11.5-15.5); Red Blood Count 4.08 m/uL (4.00-5.20); White Blood Count* 5.73 K/uL (4.50-11.00)
[2023-07-13 16:01] LABS: Slide Review Reflex No
[2023-07-13 16:53] VITALS: RESP 14; TEMP 36.1
== END 2023-11-08 23:59 | disposition home or self-care (01) ==
LOC: CCIC 14:15
PROVIDERS: PCP Family Medicine; Referring Provider Family Medicine; Visit Provider Clinical Nurse Specialist
DX: K76.9 Liver disease, unspecified (principal); M06.9 Rheumatoid arthritis, unspecified
CPT/HCPCS: 36415; 36589; 36592; 80053; 80076; 82565; 85025; 86140; 96365; 99211; A4221; J1335

== ENCOUNTER 2023-08-12 08:36 | Emergency (ER) | payer OTHER, SELFPAY ==
[2023-08-12 08:41] VITALS: BP 107/79; PULSE 84; RESP 12; TEMP 36.7; O2SAT 98; BMI 27.1
--- NOTE | 2023-08-12 09:03 | ED_ITS ---
HPI - General Adult General Time Seen by Provider: 09:03 Date Seen: 08/12/23 Chief complaint: Extremity Pain/Injury, Lower Stated complaint: knee pain and swelling Time Seen by Provider: 08/12/23 08:54 History of Present Illness HPI narrative: This is a 57-year-old female presenting to the ER today for left knee pain. She has a history of rheumatoid arthritis. She also suffered a bad but not clearly identified infection affecting her liver a few months ago. She was hospitalized here and then at [facility] for total of about 2 weeks and sent home with a long course of PICC line antibiotics. She is clinically improved from that infection but still has abnormal liver function tests. During that infection she was recently taken off methotrexate and Humira. She also has a history of Lund's esophagus, eosinophilic esophagitis, alopecia, hormone replacement therapy , and knows that she has a Taylor cyst in her left knee. She does not have any recent trouble with her knee or any known injury or twisting mechanism. Since overnight last night and this morning she has developed left knee pain and swelling. She also has some pain down into her left calf. She is worried that she might have damaged the Taylor cyst or caused the DVT to make her leg hurt. She does not have a fever. The knee is not red or warm. No pain in her thigh. She notes that her left knee (around the joint) is visibly swollen compared to the right knee. Related Data Home Medications Medication Instructions Recorded Confirmed albuterol sulfate 90 mcg/actuation 2 puff inhalation Q4-6H PRN 07/15/22 08/12/23 aerosol inhaler (ProAir HFA) hydroxychloroquine 200 mg tablet 200 mg PO BID 07/15/22 08/12/23 (Plaquenil) pantoprazole 40 mg tablet,delayed 40 mg PO BID 04/07/23 08/12/23 release (Protonix) tretinoin 0.1 % topical cream 1 applic topical HS PRN 04/07/23 08/12/23 (Retin-A) folic acid 1 mg tablet 3 mg PO DAILY 04/24/23 05/19/23 minoxidil 2.5 mg tablet 2.5 mg PO DAILY 04/24/23 08/12/23 trazodone 50 mg tablet 50 - 100 mg PO QDAY 06/22/23 09/15/23 Previous Rx's Medication Instructions Recorded estradiol 0.01% (0.1 mg/gram) 1 appful vaginal 2XW #42.5 grams 05/19/23 vaginal cream estradiol 0.1 mg/24 hr semiweekly 1 patch transdermal 2XW #24 ea 05/19/23 transdermal patch hydroxyzine pamoate 25 mg capsule 12.5 - 50 mg (0.5 - 2 x 25 mg) PO 05/19/23 TID PRN anxiety #90 caps Allergies Allergy/AdvReac Type Severity Reaction Status Date / Time Sulfa (Sulfonamide Allergy Severe hives, Verified 08/12/23 08:49 Antibiotics) wheezing PFSH [facility] Medical History (Updated 08/12/23 @ 13:21 by Sunny Salmon MD) Hemangioma of liver (2002) ?D18.03 - Hemangioma of intra-abdominal structures (ICD-10) Lund's esophagus ?K22.70 - Lund's esophagus without dysplasia (ICD-10) Eosinophilic esophagitis ?K20.0 - Eosinophilic esophagitis (ICD-10) Hormone replacement therapy (postmenopausal) ?Z79.890 - Hormone replacement therapy (ICD-10) Rheumatoid arthritis ?M06.9 - Rheumatoid arthritis, unspecified (ICD-10) 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 - Androgenic alopecia, unspecified (ICD-10) Insomnia ?G47.00 - Insomnia, unspecified (ICD-10) Surgical History History of hysterectomy ?Z90.710 - Acquired absence of both cervix and uterus (ICD-10) History of right oophorectomy ?Z90.721 - Acquired absence of ovaries, unilateral (ICD-10) History of basal cell carcinoma excision ?Z98.890 - Other specified postprocedural states (ICD-10) ?Z85.828 - Personal history of other malignant neoplasm of skin (ICD-10) History of tonsillectomy ?Z90.89 - Acquired absence of other organs (ICD-10) History of section ?Z98.891 - History of uterine scar from previous surgery (ICD-10) History of abdominoplasty ?Z98.890 - Other specified postprocedural states (ICD-10) Hx of breast augmentation ?Z98.82 - Breast implant status (ICD-10) Hx of appendectomy ?Z90.49 - Acquired absence of other specified parts of digestive tract (ICD- 10) Family History Unknown Cancer Diabetes Heart problem Mother No problems noted. Social History (Updated 04/24/23 @ 17:05 by Sandra Coffey MD) Narrative: social alcohol use Highest level of school completed/degree received: Master's degree Smoking Status: Former smoker What tobacco products do you use: cigarettes Smoking quit date/years: <= 15 years ago Do you use any of these nicotine containing products: None Second hand tobacco smoke exposure: No How often do you have a drink containing alcohol: never AUDIT-C Alcohol total score: 0 Non-prescribed substance use: denies use Caffeine: Yes (2 cups coffee a day) Little interest or pleasure in doing things: not at all Feeling down, depressed, or hopeless: not at all service: No Exam Narrative: Exam Narrative: Constitutional: Appears well-developed and well-nourished. Alert. Conversant. Non toxic. HENT: Head: Atraumatic. Nose: Nose normal. Mouth/Throat: Oral mucosa is clear and moist. no trismus. Pharynx normal. Tonsils symmetric. No tonsillar enlargement, erythema, or exudate. Eyes: Conjunctivae normal. EOM normal. Pupils equal, round, and reactive to light. No scleral icterus. Neck: Normal range of motion. Neck supple. No tracheal deviation present. Cardiovascular: Normal rate, regular rhythm. No gallop. No friction rub. No murmur heard. Symmetric PT artery pulses . Normal brisk distal capillary refill. Pulmonary/Chest: Effort normal. No stridor. No respiratory distress. No wheezes. No rales. No rhonchi . Abdominal: Soft. Bowel sounds normal. No distension. No mass. No tenderness. No rebound. No guarding. Musculoskeletal: RUE: Normal range of motion. No tenderness. No deformity LUE: Normal range of motion. No tenderness. No deformity RLE: Normal range of motion. No edema. No tenderness. No deformity LLE: Hip, quadriceps, hamstring, fine normal and nontender. Knee: There is a visible joint effusion with swelling. No warmth or redness of the skin. Range of motion the knee is limited by pain and stiffness. She is tender diffusely on the knee including the popliteal fossa. She has mild calf tenderness without any swelling or ecchymosis. No palpable cords. No ankle edema or tenderness. Foot is normal, nontender. Lymph: No Signs of ascending lymphangitis Neurological: Alert and oriented to person, place, and time. Normal strength. CN II-VII intact. No sensory deficit. GCS eye subscore is 4. GCS verbal subscore is 5. GCS motor subscore is 6. Normal coordination Skin: Skin is warm and dry. No rash noted. No pallor. Normal capillary refill. Psychiatric: Normal mood. Normal affect. Const: Vital Signs, click to edit/add: Vital Signs - 24 hr 08/12/23 08:41 08/12/23 12:38 Temperature 98.1 F Pulse Rate [Right Pulse Oximeter] 84 70 Respiratory Rate 12 Blood Pressure [Ri ght Upper Arm] 107/79 121/80 Pulse Oximetry 98 99 Oxygen Delivery Me thod Room Air Room Air Course Vital Signs Vital signs: Initial Vital Signs Temperature 98.1 F 08/12/23 08:41 Temperature Source Temporal Artery Scan 08/12/23 08:41 Pulse Rate 84 08/12/23 08:41 Respiratory Rate 12 08/12/23 08:41 Blood Pressure 107/79 08/12/23 08:41 Blood Pressure Mean 88 08/12/23 08:41 Blood Pressure Position Sitting 08/12/23 08:41 Pulse Oximetry 98 08/12/23 08:41 Oxygen Delivery Method Room Air 08/12/23 08:41 Vital Signs Temperature 98.1 F 08/12/23 08:41 Pulse Rate 84 08/12/23 08:41 Respiratory Rate 12 08/12/23 08:41 Blood Pressure 107/79 08/12/23 08:41 Pulse Oximetry 98 08/12/23 08:41 Oxygen Delivery Method Room Air 08/12/23 08:41 Temperature 98.1 F 08/12/23 08:41 Pulse Rate 70 08/12/23 12:38 Respiratory Rate 12 08/12/23 08:41 Blood Pressure 121/80 08/12/23 12:38 Pulse Oximetry 99 08/12/23 12:38 Oxygen Delivery Method Room Air 08/12/23 12:38 Medical Decision Making MDM Narrative Medical decision making narrative: PROCEDURE: Arthrocentesis, left knee Indication: Left knee pain, effusion To consent was obtained from the patient and her verbally prior to the procedure. We identified the appropriate site and side. Fastidious sterile preparation using Betadine. Sterile prep and drape. Sterile gloves in technique used throughout Local anesthesia out using 3 mL of 1% lidocaine with epi infiltrated locally through a 27 gauge 1 in needle. Using a 1 in 16 gauge needle I was able to enter the synovial cavity from an superior lateral approach. We encountered synovial fluid roughly 1-1.5 cm below the skin surface. We were able to aspirate 55 mL of straw-colored yellow/clear fluid. No blood. No purulent fluid. Fluid was collected by labor relations consultant and sent for analysis. Sterile dressing was applied. Patient tolerated the procedure without complications. No bleeding. There was visible reduction in the size of the patient's effusion, but not complete resolution, after the procedure. Medical decision making This is a pleasant 51 scheduled female with a complex past history including a recent complicated liver infection requiring a prolonged course of PICC line antibiotics. She also has a history of rheumatoid arthritis and has recently taken off all of her immuno modular medications because of the infection. She now presents with left knee swelling and pain that began yesterday without any clear trauma. She wonders if she might have twisted her knee getting out of the hot tub a few days ago. X-rays are negative for any acute fracture. She was worried about potential DVT since she is on exogenous estrogen and does have some associated calf pain. DVT ultrasound is negative. Concern here is that the effusion and probable internal knee joint pathology is causing her pain. Differential for the infusion would include inflammatory arthritis from RA, gouty arthritis or other crystalline arthropathy, septic arthritis (unlikely given absence of fever, no redness, nor warmth to palpation). Less likely would be hemarthrosis from trauma. We discussed options. Patient elected to go ahead with arthrocentesis here in the ER. Performed as above. Synovial fluid analysis is not completely back at the time of discharge. Cell count is slightly elevated at 4000 but not high enough to raise concern for a septic arthritis. Also a monocyte predominance would favor non bacterial infection. Culture and crystal analysis are pending. Discussed with our orthopedic clinic. They will follow-up with patient on Tuesday. They have already scheduled that appointment. With reasonable clinical follow up since I think she is safe for outpatient management. She will use [id number] ibuprofen. Knee immobilizer for comfort. Precautions for return to the ER reviewed. Questions answered. Lab Data Labs: Lab Results 08/12/23 Range/Units 12:35 Fluid Volume 30 Fluid Color Xanthochromic A Fluid Appearance Slightly Cloudy A Fluid WBC 4728 Cells/uL Fluid RBC 1000 Cells/uL Fluid Polynuclear WBCs 21 % Fluid Mononuclear WBCs 79 % Discharge Plan Discharge Clinical Impression: Effusion of knee joint, left Patient Disposition: Home, Self-Care Condition: Stable Instructions: Swollen Joint (ED), Joint Aspiration (DC) Additional Instructions: Please come back to the ER right away if you have any worsening symptoms such as increasing swelling, redness or warmth of your knee, fever, or worsening pain. You should receive a phone call from the orthopedic clinic to set up her follow- up visit. Follow-up with the [place] [facility] within the next 2-for days for further evaluation Prescriptions: No Action pantoprazole [Protonix] 40 mg tablet,delayed release (DR/EC) 40 mg PO BID trazodone 50 mg tablet 50 - 100 mg PO QDAY hydroxyzine pamoate 25 mg capsule 12.5 - 50 mg PO TID PRN (Reason: anxiety) Qty: 90 12RF estradiol 0.1 mg/24 hr patch semiweekly 1 patch transdermal 2XW Qty: 24 12RF Rx Instructions: apply 1 patch for 3 days alternating with 1 patch for 4 days each week for 3 wks per 4-wk cycle estradiol 0.01 % (0.1 mg/gram) cream 1 appful vaginal 2XW Qty: 42.5 12RF minoxidil 2.5 mg tablet 2.5 mg PO DAILY folic acid 1 mg tablet 3 mg PO DAILY hydroxychloroquine [Plaquenil] 200 mg tablet 200 mg PO BID albuterol sulfate [ProAir HFA] 90 mcg/actuation HFA aerosol inhaler 2 puff inhalation Q4-6H PRN tretinoin [Retin-A] 0.1 % cream 1 applic topical HS PRN Follow Up/Referrals: Ilda Cardenas MD [Primary Care Provider] - Stand Alone Forms: [facility] Info Instructions
--- NOTE | 2023-08-12 09:20 | CRLHL7_ITS ---
For Patients: As a result of the Century Cures Act, medical imaging exams and procedure reports are released immediately into your electronic medical record. You may view this report before your referring provider. If you have questions, please contact your health care provider. INDICATION: Left knee pain COMPARISON: 04/07/2023 TECHNIQUE: A compression venous ultrasound exam was performed of the left lower extremity using miller-scale imaging, color Doppler and spectral Doppler analysis. FINDINGS: Sonographic imaging of the left lower extremity demonstrates normal compressibility and color Doppler venous blood flow within the common femoral vein, deep femoral vein, and the proximal greater saphenous vein. Within the thigh, the femoral vein is patent and compressible. At a lower level, the popliteal and posterior tibial veins also show normal compressibility and color Doppler venous blood flow. Limited imaging of the contralateral groin demonstrates a normal spectral waveform and color Doppler venous blood flow within the right common femoral vein. Popliteal cyst is present measuring 7.8 x 3.4 cm, previously measuring 8.2 x 2.4 x 7.4 cm. Fluid is present within the anterior the measuring 5.5 x 5.2 cm IMPRESSION: No evidence of deep vein thrombosis within the left lower extremity. Popliteal cyst is similar. Fluid around the anterior knee. Dictated by Epifanio Lagos MD @ 08/12/2023 10:21:33 AM (Electronically Signed)
--- NOTE | 2023-08-12 09:20 | CRLHL7_ITS ---
For Patients: As a result of the Cures Act, medical imaging exams and procedure reports are released immediately into your electronic medical record. You may view this report before your referring provider. If you have questions, please contact your health care provider. Indication: KNEE PAIN, SWELLING Technique: Left knee 3 views Comparison: 08/11/2015 Findings: Narrowing and spurring at the lateral facet of the patellofemoral joint. Large joint effusion in the suprapatellar recess. No fracture. Mild medial compartment narrowing. Spurring of the tibial spines and spurring at the lateral compartment. Impression: Large joint effusion. No acute fracture. Degenerative joint disease. Dictated by Epifanio Lagos MD @ 08/12/2023 9:53:50 AM (Electronically Signed)
[2023-08-12 12:38] VITALS: BP 121/80; PULSE 70; O2SAT 99
[2023-08-12 13:03] LABS: Mononuclear WBC Body Fluid* 79 %; Polynuclear WBC Body Fluid* 21 %; RBC, Body Fluid* 1000 Cells/uL; WBC, Body Fluid* 4728 Cells/uL
[2023-08-12 13:07] LABS: BF Total Volume* 30
[2023-08-12 13:08] LABS: BF Clarity* Slightly Cloudy; BF Color Xanthochromic
--- NOTE | 2023-08-12 13:16 | ED.NURSE ---
PT presented to ER c/o upper RIGHT groin pain. Pt denies history of DVT, PEs. Does endorse a complex medical history including cancer dx and previous Radiation therapy which has, per the patient, caused a lot more complications. Pt IV placed in RIGHT hand, 22 G, which she tolerated well. Pt had a CT completed and is awaiting results and a plan prior to discharge. Pt pain addressed and decreased.
--- NOTE | 2023-08-12 13:23 | ED.NURSE ---
Pt presenting with LEFT leg edema around knee. Denies MVA, trauma or other injury. Acute onsent. HAs a hx of RA. Procedure completed today to drain excess fluid, samples sent to lab. Pt tolerated well.
== END 2023-08-12 13:43 | disposition home or self-care (01) ==
PROVIDERS: Emergency Provider Emergency Medicine; PCP Family Medicine
DX: M25.462 Effusion, left knee (principal)
CPT/HCPCS: 20610; 73562; 87070; 87205; 89051; 89060; 93971; 99283; 99285

== ENCOUNTER 2023-08-23 13:28 | Outpatient (CLI) | payer OTHER, SELFPAY ==
[2023-08-23 13:46] LABS: Basophils Absolute Auto 0.07 K/uL (0.00-0.30); Basophils Percent Auto 0.7 % (0.0-3.0); Eosinophils Absolute Auto 0.56 K/uL (0.00-0.50); Eosinophils Percent Auto 5.8 % (0.0-7.0); Hematocrit 40.7 % (33.0-51.0); Hemoglobin* 13.4 gm/dL (12.0-16.0); Immature Granulocytes Abs Auto 0.04 K/uL (0.00-0.30); Immature Granulocytes Pct Auto 0.4 %; Lymphocytes Absolute Auto 2.84 K/uL (0.90-2.90); Lymphocytes Percent Auto 29.5 % (20-44); Mean Corpuscular HGB Conc 33 gm/dL (32-36); Mean Corpuscular Hemoglobin 28 pg (26-34); Mean Corpuscular Volume 86 fL (80-100); Monocytes Percent Auto 8.5 % (0.0-11.0); Neutrophils Percent Auto 55.1 % (42.0-72.0); Platelet Count* 236 K/uL (140-440); Red Blood Count 4.74 m/uL (4.00-5.20); White Blood Count* 9.63 K/uL (4.50-11.00)
[2023-08-23 13:57] LABS: Slide Review Reflex No
[2023-08-23 14:10] LABS: Chloride* 103 mmol/L (96-114); Potassium* 4.3 mmol/L (3.6-5.1); Sodium* 140 mmol/L (135-149)
[2023-08-23 14:13] LABS: Alanine Aminotransferase* 25 U/L (4-35); Alkaline Phosphatase* 49 U/L (40-150); Anion Gap 6 mEq/L (7-15); Aspartate Amino Transferase* 25 U/L (12-35); Bilirubin Total* 0.6 mg/dL (0.1-1.5); Blood Urea Nitrogen* 13 mg/dL (7-30); Carbon Dioxide* 31 mmol/L (20-32); Creatinine* 0.7 mg/dL (0.5-1.5); Estimated Glomerular Filt Rate 101 ml/min; Glucose* 79 mg/dL (60-115); Total Protein* 7.4 g/dL (6.0-8.3)
[2023-08-23 14:14] LABS: Calcium* 9.4 mg/dL (8.4-10.6)
== END 2023-08-23 13:29 | disposition home or self-care (01) ==
PROVIDERS: PCP Family Medicine; Visit Provider Internal Medicine
DX: K75.0 Abscess of liver (principal)
CPT/HCPCS: 36415; 80053; 85025

== ENCOUNTER 2024-02-13 09:49 | Outpatient (CLI) | payer OTHER, SELFPAY ==
--- NOTE | 2024-02-13 13:40 | MM_ITS ---
Patient: CHRISTIAN ESPINOZA Facility:?[facility] Patient ID:?[id number] Site Patient ID:?[id number]. Site :?1965 Study:?XRay-Breast Bilateral 3D W/CAD-02/13/2024 2:13:35 PM Ordering Physician:?Ilda Cardenas Final Report: BILATERAL SCREENING MAMMOGRAM WITH COMPUTER-AIDED DETECTION AND TOMOSYNTHESIS TECHNIQUE: CC, MLO and Implant displaced views were obtained. These mammographic images have been obtained using full-field digital technique. These mammographic images were interpreted with the benefit of computer-aided detection. Breast Tomosynthesis was used in this interpretation. COMPARISON FILM: 02/11/23, 02/02/22, 01/01/21. FINDINGS: There are scattered areas of fibroglandular density. IMPRESSION: There is no radiographic evidence for malignancy. ASSESSMENT: BI-RADS Category 2: Benign RECOMMENDATION: Routine screening mammogram in 1 year. A lay language report of this examination will be provided to the patient. Epifanio Lagos M.D. Diagnostic Radiologist [email or web address] DSM/sp R& Transcribed: 1:44 p.m. SP/Dictated by: Epifanio Lagos MD @ 02/14/2024 9:11:00 AM Signed by:Jyoti Lagos MD @02/14/2024 1:46:36 PM (Electronic Signature)
== END 2024-02-13 09:50 | disposition home or self-care (01) ==
PROVIDERS: PCP Family Medicine; Visit Provider Family Medicine
DX: Z12.31 Encounter for screening mammogram for malignant neoplasm of breast (principal)
CPT/HCPCS: 77063; 77067

== ENCOUNTER 2024-04-05 10:14 | Outpatient (CLI) | payer OTHER, SELFPAY ==
--- NOTE | 2024-04-05 10:15 | MR_ITS ---
[address] [address] Phone:?[phone] Fax:?[phone] Referring Physician Information: Grady Hines M.D. [id number] [facility] [address] Phone:?[phone] Fax:?[phone] Patient:Susan Campoverde D.O.B:?1965 Sex:?Female Phone:?[phone] [facility] MRN:?[id number] Exam Date:?04/05/2024 EXAM: MRI OF THE LEFT KNEE CLINICAL INFORMATION: The patient is a 58-year-old with left knee pain. Evaluate for medial meniscal tear. PRIOR SURGERY: None reported. COMPARISON STUDIES: Comparison is made to the prior MRI examination dated 08/14/2015. TECHNICAL INFORMATION: Imaging was produced on a high-field, 1.5 Shalini MR scanner. Axial proton-density and fat-suppressed T2 imaging of the left knee was performed in addition to sagittal proton-density and fat-suppressed proton- density imaging. Coronal proton-density and coronal STIR imaging was also performed. FINDINGS: Articular/Extraarticular collections: Effusion: Moderate to large. Popliteal cyst: Minimal. Loose bodies: No well-defined intra-articular loose bodies are present. Subcutaneous and extraarticular soft tissues: Nonspecific subcutaneous soft tissue edema and/or hemorrhage can be seen along the anterior, anteromedial, and anterolateral aspects of the left knee. Osseous structures: There is a broad-based area of increased marrow signal intensity involving the medial tibial plateau with a curvilinear area of low signal intensity along the articular surfaces. The findings are in keeping with subcortical fracture and are consistent with a traumatic or stress injury of the medial tibial plateau. Reactive bony changes along the articular surfaces of the medial femoral condyle can be seen, in keeping with chondromalacia and chondral loss described below. Additionally, there is cortical irregularity, subcortical cystic change, and subcortical edema along the articular surfaces of the patellofemoral articulation with spurring along the articular margins. The findings are consistent with patellofemoral osteoarthritis and are in keeping with the chondromalacia and chondral loss described below. Benign-appearing cystic changes are seen along the lateral aspect of the lateral femoral condyle on coronal series 8 image 19. No other bony abnormalities are present. Ligamentous structures: ACL: Intact and normal in appearance. PCL: Intact and normal in appearance. MCL: Chronic residual changes of a prior incomplete sprain of the proximal and mid portions of the MCL can be seen. There is no evidence for acute injury or transverse disruption of MCL fibers. LCL: Intact and normal in appearance. Posterolateral corner: Intact and normal in appearance. Posteromedial corner: No posteromedial corner soft tissue injury. Semimembranosus and pes anserine tendons demonstrate no tendinopathy or associated bursitis. Extensor mechanism/Patellar retinacular structures: Patellar tendon: Intact, without tendinopathy. Quadriceps tendon: Intact, without tendinopathy. Retinacula: The medial and lateral retinacula are intact. The medial patellofemoral ligament is intact. Medial compartment: Medial meniscus: There is degeneration, fraying, and irregularity of the middle one third of the medial meniscus, seen to best advantage on coronal series 7 image 17. Additional intrasubstance degeneration of the posterior horn can be seen. No definite areas of well-defined tearing of the medial meniscus are noted. There is no evidence for parameniscal cyst formation. Medial femoral condyle: Full-thickness and near full-thickness chondral loss can be seen along the articular surfaces of the medial femoral condyle with underlying marrow edema. Medial tibial plateau: Full-thickness and near full-thickness chondral loss can be seen along the medial articular surfaces of the medial tibial plateau. Lateral compartment: Lateral meniscus: No evidence for lateral meniscal tearing is present. No evidence for parameniscal cyst formation can be seen. Lateral femoral condyle: No chondromalacia, chondral defect, or osteochondral abnormality. Lateral tibial plateau: No chondromalacia, chondral defect, or osteochondral abnormality. Patellofemoral compartment: Patella: Full-thickness and near full-thickness chondral loss can be seen involving the patellar apex and lateral patellar facet on axial series 4 image 9 and on sagittal series 6 image 20. Underlying bony changes are present. Trochlea: Full-thickness and near full-thickness chondral loss can be seen along the central and lateral articular surfaces of the femoral trochlea. Underlying bony changes are seen. Neurovascular: No definite neurovascular abnormalities are seen. CONCLUSION: 1. Traumatic versus stress injury involving the medial tibial plateau. 2. 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 3. Degeneration and fraying of the medial meniscus without definite evidence for well-defined medial or lateral meniscal tearing. 4. Chondromalacia and chondral loss along the articular surfaces of the medial femoral condyle and medial tibial plateau. 5. Chronic incomplete MCL sprain. The cruciate ligaments appear intact. 6. Moderate to large knee joint effusion. [facility] Electronically signed on 04/05/2024 2:22:00 PM by Michael Diana M.D.
== END 2024-04-05 10:15 | disposition home or self-care (01) ==
LOC: MRI 10:14
PROVIDERS: PCP Family Medicine; Visit Provider Orthopaedic Surgery
DX: M25.562 Pain in left knee (principal); S83.249A Other tear of medial meniscus, current injury, unspecified knee, initial encounter; M17.12 Unilateral primary osteoarthritis, left knee; M94.262 Chondromalacia, left knee; S83.412A Sprain of medial collateral ligament of left knee, initial encounter; M25.462 Effusion, left knee; S89.92XA Unspecified injury of left lower leg, initial encounter
CPT/HCPCS: 73721

== ENCOUNTER 2024-05-22 12:30 | Outpatient (RCR) | payer OTHER, SELFPAY | END 2024-07-26 09:30 | disposition home or self-care (01) | PROVIDERS: PCP Family Medicine; Visit Provider Orthopaedic Surgery | DX: M17.12 Unilateral primary osteoarthritis, left knee (principal); Z51.89 Encounter for other specified aftercare | CPT/HCPCS: 97110; 97140; 97161 ==

== ENCOUNTER 2024-10-22 17:09 | Outpatient (CLI) | payer OTHER, SELFPAY ==
[2024-10-26 17:44] LABS: Varicella-Zoster Virus Source Vesicle; Varicella-Zoster Virus by PCR Not Detected
== END 2024-10-22 17:10 | disposition home or self-care (01) ==
LOC: FRMREF 17:10
PROVIDERS: PCP Family Medicine; Visit Provider Family Medicine
DX: B02.9 Zoster without complications (principal)
CPT/HCPCS: 86787

== ENCOUNTER 2024-10-24 16:11 | Outpatient (CLI) | payer OTHER, SELFPAY ==
--- NOTE | 2024-10-24 16:45 | CRLHL7_ITS ---
For Patients: As a result of the Century Cures Act, medical imaging exams and procedure reports are released immediately into your electronic medical record. You may view this report before your referring provider. If you have questions, please contact your health care provider. INDICATION: Leg pain and swelling. TECHNIQUE: Ultrasound venous duplex lower extremity bilateral. Compression venous exam was performed using miller-scale, color Doppler, and spectral Doppler imaging. COMPARISON: None. FINDINGS: Sonographic imaging demonstrates the common femoral, deep femoral, superficial femoral, popliteal, posterior tibial and greater saphenous veins to be fully compressible with normal color Doppler blood flow in both lower extremities. IMPRESSION: Normal bilateral lower extremity venous ultrasound, no sign of deep venous thrombosis. Dictated by Marc Redd MD @ 10/24/2024 5:43:28 PM (Electronically Signed)
== END 2024-10-24 16:12 | disposition home or self-care (01) ==
LOC: US 16:13
PROVIDERS: PCP Family Medicine; Visit Provider Family Medicine
DX: M79.651 Pain in right thigh (principal); M79.652 Pain in left thigh; R60.0 Localized edema
CPT/HCPCS: 93970

== ENCOUNTER 2024-11-27 11:45 | Outpatient (RCR) | payer OTHER, SELFPAY | END 2024-11-27 13:30 | disposition home or self-care (01) | PROVIDERS: PCP Family Medicine; Visit Provider Family Medicine | DX: M54.12 Radiculopathy, cervical region (principal); M54.2 Cervicalgia; R20.2 Paresthesia of skin; Z74.09 Other reduced mobility; Z51.89 Encounter for other specified aftercare | CPT/HCPCS: 97140; 97162 ==

== ENCOUNTER 2025-02-21 14:27 | Outpatient (CLI) | payer OTHER, SELFPAY ==
--- NOTE | 2025-02-21 14:40 | CRLHL7_ITS ---
For Patients: As a result of the Century Cures Act, medical imaging exams and procedure reports are released immediately into your electronic medical record. You may view this report before your referring provider. If you have questions, please contact your health care provider. BILATERAL SCREENING MAMMOGRAM WITH COMPUTER-AIDED DETECTION AND TOMOSYNTHESIS TECHNIQUE: CC and MLO views were obtained. These mammographic images have been obtained using full-field digital technique. These mammographic images were interpreted with the benefit of computer-aided detection. Breast Tomosynthesis was used in this interpretation. COMPARISON FILM: 02/13/24, 02/11/23, 02/02/22. FINDINGS: The breasts are almost entirely fatty. IMPRESSION: There is no radiographic evidence for malignancy. ASSESSMENT: BI-RADS Category 2: Benign RECOMMENDATION: Routine screening mammogram in 1 year. A lay language report of this examination will be provided to the patient. Epifanio Lagos M.D. Diagnostic Radiologist [email or web address] SP/Dictated by: Epifanio Lagos MD @ 02/28/2025 9:28:00 AM (Electronically Signed)
== END 2025-02-21 14:28 | disposition home or self-care (01) ==
LOC: MAMMO 14:28
PROVIDERS: PCP Family Medicine; Visit Provider Family Medicine
DX: Z12.31 Encounter for screening mammogram for malignant neoplasm of breast (principal)
CPT/HCPCS: 77063; 77067

== ENCOUNTER 2025-08-27 13:23 | Outpatient (CLI) | payer OTHER, SELFPAY ==
[2025-08-30 09:52] LABS: HPV Source Endocervical
[2025-09-02 20:40] LABS: Pap Test Digital Imaging Done
== END 2025-08-27 13:24 | disposition home or self-care (01) ==
PROVIDERS: PCP Family Medicine; Visit Provider Family Medicine
DX: Z12.4 Encounter for screening for malignant neoplasm of cervix (principal)
CPT/HCPCS: 80053; 80061; 87624; 87625; 88141; 88142; 88175